=== PATIENT | female | born 1990 | race Two or more races ===

== ENCOUNTER 2023-12-21 19:00 | Emergency (ER) | payer MEDICAID, OTHER ==
[~2023-12-21] VITALS: Ht 160 cm; Wt 72.6 kg
[2023-12-21] MEDS: LACTATED RINGER'S 1,000 ML IV ONE (20:11)
[2023-12-21] MEDS: cefTRIAXone 1GM/50ML D5W 50 ML IV ONE (21:03)
[2023-12-21 21:28] LABS: Urine Bacteria None Seen /hpf (None Seen)
[2023-12-21 21:44] LABS: Urine Blood Negative /uL (Negative); Urine Clarity Clear (Clear); Urine Color Colorless (Yellow); Urine Protein, UAD Negative (Negative); Urine Specific Gravity 1.004 (1.001-1.035); Urine Urobilinogen Normal (Negative); Urine WBC 1 /hpf (0 - 5)
== END 2023-12-21 22:25 | disposition home or self-care (01) ==
LOC: ER 19:00 → LDRP 19:11
PROVIDERS: ADMIT Obstetrics & Gynecology; ATTEND Obstetrics & Gynecology
DX: O62.9 Abnormality of forces of labor, unspecified (principal); Z3A.25 25 weeks gestation of pregnancy
CPT/HCPCS: 59025; 81001; 81002; 94760; 96361; 96365; G0378; J0696; 96360